=== PATIENT | female | born 2005 | race Caucasian/White ===

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

== ENCOUNTER 2023-06-03 06:46 | Emergency (ER) | payer BC, OTHER, SELFPAY ==
--- NOTE | ~2023-06-03 | XR_ITS ---
EXAMINATION: XR chest 2V DATE: 06/03/2023 07:39 INDICATION: Chest pain. Shortness of breath. TECHNIQUE: Frontal and lateral views of the chest were obtained. COMPARISON: None. FINDINGS: There is no pneumonia, pleural effusion, or pneumothorax. The heart size is normal. IMPRESSION: 1. No acute cardiopulmonary disease. Reviewed, dictated and finalized at location A.
[2023-06-03 06:47] VITALS: BP 130/81; PULSE 89; RESP 18; TEMP 36.2; O2SAT 98
--- NOTE | 2023-06-03 06:49 | ECG_ITS ---
Measurements Intervals [place] Rate: 78 P: 55 [place]: 149 QRS: 45 QRSD: 87 T: 36 QT: 384 QTc: 438 Interpretive Statements SINUS RHYTHM NORMAL ECG NO PREVIOUS ECG AVAILABLE FOR COMPARISON Electronically Signed On 06-04-2023 12:15:59 CDT by Norris Pineda M.D.
[2023-06-03 06:56] VITALS: PULSE 78
--- NOTE | 2023-06-03 07:13 | PC.NURSE ---
patient report given to VILMA Orozco for continuation of care.
--- NOTE | 2023-06-03 07:16 | ED.CHESTPAIN ---
HPI - Chest Pain General Chief Complaint: Chest Pain Stated Complaint: Chest Pain Time Seen by Provider: 06/03/23 07:00 Source: patient and RN notes reviewed Mode of arrival: ambulatory Limitations: no limitations History of Present Illness HPI narrative: patient states that she was awakened with chest pain in her central chest Fontane[place] 8/10 more of a tightness. She said this was constant for about 4 hours and then seemed to go away she tried to lay down for another 10 minutes and then the pain returned. It has been constant since then. Woke her up at 1 this morning. She says she had some sweating, nausea, mild shortness of breath. She is a nonsmoker states that her mom has problems with recurrent chest pain but no cardiac abnormalities. MD complaint: chest pain Onset (ago): hour(s) (6) Timing of current episode: constant Prior episodes: No Onset: awoke with symptoms Pain location: substernal Pain radiation: back Pain scale (0-10): 8 Quality: tightness Relieving factors: nothing Exacerbating factors: nothing Associated symptoms: nausea, diaphoresis and dyspnea Treatment prior to arrival: none Risk Factors Coronary artery disease risk factors: none Thoracic aortic dissection risk factors: none Related Data Home Medications Medication Instructions Recorded Confirmed No Home Medications 06/03/23 06/03/23 Allergies Allergy/AdvReac Type Severity Reaction Status Date / Time No Known Allergies Allergy Verified 06/03/23 07:14 [facility] Past Medical History Medical History (Updated 06/03/23 @ 08:36 by Kalyan Roth MD) No active medical problems Surgical History Surgical History (Updated 06/03/23 @ 07:19 by Kalyan Roth MD) No pertinent past surgical history Exam Const: General: healthy appearing, no acute distress and alert Nutritional Appearance: well nourished and obese Orientation/consciousness: patient oriented x3 Limitations: no limitations Other: Female tech in the room during examination. HENMT: Head: normal to inspection Ears: external ears normal Face/Nose/Sinus: Normal external nose present Face and sinus: normal facial exam Mouth: Yes moist mucous membranes Eyes: Conjunctivae: conjunctivae normal Pupils: Equal, round and reactive pupils present EOM: EOMs intact bilaterally Neck: Neck: normal visual inspection Resp: Effort & Inspection: normal respiratory effort Auscultation: clear to auscultation bilaterally Cardio: Rate: regular rate Rhythm: regular rhythm GI: GI Palp: Yes Soft to palpation and No Tenderness to palpation present (GI) Auscultation: normal bowel sounds Back/Spine/Pelvis: Cervical Spine: cervical ROM normal Thoracic/Lumbar Spine: thoraco-lumbar ROM normal Skin: General skin exam: normal color Rashes: no rashes Neuro: General: patient oriented x3, moves all extremities, no focal motor deficits and CN's II-XI intact bilaterally Speech: normal speech Gait exam (Neuro): Normal gait present Extrem: General: normal to inspection and no clubbing, cyanosis or edema Psych: Mental Status: mental status grossly normal Affect: normal affect Attitude: cooperative Course Vital Signs Vital signs: Vital Signs Temperature 36.2 C L 06/03/23 06:47 Pulse Rate 89 06/03/23 06:47 Respiratory Rate 18 06/03/23 06:47 Blood Pressure 130/81 06/03/23 06:47 Pulse Oximetry 98 06/03/23 06:47 Oxygen Delivery Room Air 06/03/23 06:47 Temperature 36.2 C L 06/03/23 06:47 Pulse Rate 78 06/03/23 06:56 Respiratory Rate 18 06/03/23 06:47 Blood Pressure 130/81 06/03/23 06:47 Pulse Oximetry 98 06/03/23 06:47 Oxygen Delivery Room Air 06/03/23 06:56 MDM - Chest Pain Differential Diagnosis Differential diagnosis: Likely pneumothorax, stable angina, unstable angina pectoris, atypical chest pain, st elevation myocardial infarction, chest pain and other ( Pneumonia, electrolyte abnormality, anemia) Lab Data Attestation: I reviewed the
[2023-06-03 07:30] VITALS: BP 120/81; PULSE 76; RESP 20; O2SAT 98
[2023-06-03] MEDS: ASPIRIN 81 MG CHEWABLE TABLET 324 MG PO (07:36)
[2023-06-03 07:50] LABS: Basophils Absolute Auto 0.05 K/mm3 (0.00-0.10); Basophils Percent Auto 0.3 % (0.0-1.0); Eosinophils Absolute Auto 0.22 K/mm3 (0.02-0.50); Eosinophils Percent Auto 1.5 % (1.0-6.0); Hematocrit 38.2 % (35.0-49.0); Hemoglobin 12.3 g/dL (12.0-15.0); Immature Granulocyte Absolute 0.08 K/mm3 (0.00-0.00); Immature Granulocyte Percent A 0.5 % (0.0-0.0); Lymphocytes Absolute Auto 2.37 K/mm3 (1.10-4.50); Lymphocytes Percent Auto 15.8 % (18.0-42.0); Mean Corpuscular HGB Conc 32.2 g/dL (32.0-36.0); Mean Corpuscular Hemoglobin 28.5 pg (27.0-31.0); Mean Corpuscular Volume 88.6 fL (78.0-102.0); Mean Platelet Volume 8.9 fl (9.2-11.8); Monocytes Absolute Auto 0.52 K/mm3 (0.10-0.90); Monocytes Percent Auto 3.5 % (2.0-11.0); Neutrophils Absolute Auto 11.8 K/mm3 (1.7-7.2); Neutrophils Percent Auto 78.4 % (50.0-70.0); Platelet Count Result 482 K/mm3 (150-420); Red Blood Count 4.31 M/mm3 (4.20-5.40); Red Cell Distribution Width 13.7 % (11.6-14.4)
[2023-06-03 08:00] VITALS: BP 111/63; PULSE 78; RESP 23; O2SAT 97
[2023-06-03 08:07] LABS: INR 0.9; Partial Thromboplastin Time 29.6 SEC (23.90-30.70); Prothrombin Time 10.3 Seconds (9.50-12.10)
[2023-06-03 08:19] LABS: Alanine Aminotransferase 14 U/L (14-59); Albumin Level 3.2 g/dL (3.4-5.0); Alkaline Phosphatase 94 U/L (46-116); Anion Gap 7 mmol/L (8-16); Aspartate Amino Transferase 11 U/L (15-37); Bilirubin,Total 0.2 mg/dL (0.00-1.00); Blood Urea Nitrogen 10 mg/dL (7-18); Carbon Dioxide 29 mmol/L (21-32); Chloride 102 mmol/L (98-108); Estimated CRCL calculation 133 ml/min; Estimated Glomerular Filt Rate > 60; Glucose 94 mg/dL (70-99); Magnesium 1.8 mg/dL (1.8-2.4); Osmolality Calculated 285 mOsm/kg (285-295); Potassium 4.3 mmol/L (3.5-5.1); Sodium 138 mmol/L (136-145); Total Protein 7.3 g/dL (6.4-8.2); Troponin I < 4.0 ng/L (0.00-60.4)
[2023-06-03 08:20] LABS: Thyroid Stimulating Hormone 2.89 uIU/mL (0.36-3.74)
[2023-06-03 08:30] VITALS: BP 122/87; PULSE 81; RESP 18; O2SAT 98
[2023-06-03 08:45] VITALS: BP 122/77; PULSE 81; RESP 21; TEMP 36.8; O2SAT 99
== END 2023-06-03 08:45 | disposition home or self-care (01) ==
PROVIDERS: Emergency Provider Emergency Medicine
DX: R07.89 Other chest pain (principal); R11.0 Nausea; R06.00 Dyspnea, unspecified
CPT/HCPCS: 36415; 71046; 80053; 83735; 84443; 84484; 85025; 85610; 85730; 93005; 99284; A9270

== ENCOUNTER 2023-06-25 12:54 | Emergency (ER) | payer BC, OTHER, SELFPAY ==
[2023-06-25] VITALS (25 sets, daily range): BP systolic 89–134; BP diastolic 49–111; PULSE 54–89; RESP 10–28; TEMP 36.2–36.6; O2SAT 94–100
--- NOTE | 2023-06-25 12:57 | ECG_ITS ---
Measurements Intervals [place] Rate: 63 P: 33 [place]: 141 QRS: 13 QRSD: 106 T: 29 QT: 406 QTc: 418 Interpretive Statements SINUS RHYTHM WITH SINUS ARRHYTHMIA DELAYED PRECORDIAL R/S TRANSITION BORDERLINE ECG COMPARED TO ECG 06/03/2023 06:57:19 SINUS ARRHYTHMIA NOW PRESENT Electronically Signed On 06-25-2023 13:48:38 CDT by Wyatt Khoury D.O.
--- NOTE | 2023-06-25 13:10 | ED.CHESTPAIN ---
HPI - Chest Pain General Chief Complaint: Chest Pain Stated Complaint: chest pain, abdominal pain. n/v/d Time Seen by Provider: 06/25/23 13:09 Related Data Home Medications Medication Instructions Recorded Confirmed No Home Medications 06/03/23 06/25/23 Allergies Allergy/AdvReac Type Severity Reaction Status Date / Time No Known Allergies Allergy Verified 06/25/23 13:01 [facility] Past Medical History Medical History (Updated 06/04/23 @ 00:06 by Melisa Chen) No active medical problems Surgical History Surgical History (Updated 06/03/23 @ 07:19 by Kalyan Roth MD) No pertinent past surgical history Discharge Plan Discharge Prescriptions: No Action No Home Medications Follow-up/Referrals: UNKNOWN,DOCTOR [Primary Care Provider] -
--- NOTE | 2023-06-25 13:17 | ED.ABDPAIN ---
HPI - Abdominal Pain General Chief Complaint: Chest Pain Stated Complaint: chest pain, abdominal pain. n/v/d Time Seen by Provider: 06/25/23 13:09 Source: patient Mode of arrival: ambulatory Limitations: no limitations History of Present Illness HPI narrative: 18-year-old female, heavy vaping presents to the ER with a 1 day history of -- epigastric pain which is continuous and nonradiating. -- Multiple episodes of nausea and vomiting no fever or chills LMP approximately 1 month ago MD elicited complaint: abdominal pain Onset (ago): day(s) ( started yesterday) Pain Consistency: constant Location: epigastric Severity: severe Quality: aching Radiation: none Migration to: no migration Exacerbating factors: nothing Relieving factors: nothing Associated symptoms: denies other symptoms, nausea, vomiting and diarrhea Related Data Date of Last Menstrual Period: 05/24/23 Patient : No Home Medications Medication Instructions Recorded Confirmed No Home Medications 06/03/23 06/25/23 Allergies Allergy/AdvReac Type Severity Reaction Status Date / Time No Known Allergies Allergy Verified 06/25/23 13:01 Review of Systems Review of Systems: All systems reviewed & are unremarkable except as noted in HPI and below Constitutional: Constitutional: Reports as per HPI and Reports no additional constitutional complaints Eyes: Eyes: Reports as per HPI and Reports no additional eye complaints ENT: Reports system reviewed and no additional complaints, except as documented and Reports as per HPI Cardiovascular: Cardiovascular: Reports as per HPI and Reports no additional cardiovascular complaints Respiratory: Respiratory: Reports as per HPI and Reports no additional respiratory complaints Gastrointestinal: Gastrointestinal: Reports as per HPI, Reports no additional gastrointestinal complaints, Reports abdominal pain, Reports diarrhea, Reports nausea and Reports vomiting Genitourinary: Genitourinary: Reports no additional female genitourinary complaints Musculoskeletal: Musculoskeletal: Reports no additional musculoskeletal complaints Integumentary/Breasts: Skin/Breast: Reports system reviewed and no additional complaints, except as docu and Reports as per HPI Neurologic: Reports system reviewed and no additional complaints, except as documented and Reports as per HPI Psychiatric: Psychiatric: Reports no additional psychiatric complaints and Reports as per HPI Endocrine: Endocrine: Reports no additional endocrine complaints and Reports as per HPI Hematologic/Lymphatic: Hematologic/Lymphatic: Reports no additional hematologic/lymphatic complaints and Reports as per HPI Allergic/Immunologic: Allergic/Immunologic: Reports no additional allergic/immunologic complaints and Reports as per HPI PMF Past Medical History Medical History No active medical problems Surgical History Surgical History No pertinent past surgical history Exam Const: General: healthy appearing and no acute distress Nutritional Appearance: well nourished Orientation/consciousness: patient oriented x3 Limitations: no limitations HENMT: Head: normal to inspection Ears: external ears normal Face/Nose/Sinus: Normal external nose present Face and sinus: normal facial exam Mouth: Yes Normal oral and palatal mucosa present Throat: posterior oropharynx normal Eyes: Conjunctivae: conjunctivae normal Pupils: Equal, round and reactive pupils present EOM: EOMs intact bilaterally Direct Ophthalmoscopy: no photophobia Neck: Neck: normal visual inspection, no lymphadenopathy and no meningeal signs Chest: Chest palpation & inspection: normal inspection of the chest Resp: Effort & Inspection: normal respiratory effort Auscultation: clear to auscultation bilaterally Cardio: Rate: regular rate Rhythm: regular rhythm GI: GI Palp:
[2023-06-25 13:32] LABS: Basophils Absolute Auto 0.03 K/mm3 (0.00-0.10); Basophils Percent Auto 0.2 % (0.0-1.0); Eosinophils Absolute Auto 0.05 K/mm3 (0.02-0.50); Eosinophils Percent Auto 0.4 % (1.0-6.0); Hematocrit 38.3 % (35.0-49.0); Hemoglobin 12.3 g/dL (12.0-15.0); Immature Granulocyte Absolute 0.07 K/mm3 (0.00-0.00); Immature Granulocyte Percent A 0.5 % (0.0-0.0); Lymphocytes Absolute Auto 1.38 K/mm3 (1.10-4.50); Mean Corpuscular HGB Conc 32.1 g/dL (32.0-36.0); Mean Corpuscular Hemoglobin 28.1 pg (27.0-31.0); Mean Corpuscular Volume 87.4 fL (78.0-102.0); Mean Platelet Volume 8.9 fl (9.2-11.8); Monocytes Absolute Auto 0.36 K/mm3 (0.10-0.90); Monocytes Percent Auto 2.6 % (2.0-11.0); Neutrophils Absolute Auto 11.9 K/mm3 (1.7-7.2); Neutrophils Percent Auto 86.3 % (50.0-70.0); Platelet Count Result 476 K/mm3 (150-420); Red Blood Count 4.38 M/mm3 (4.20-5.40); Red Cell Distribution Width 13.7 % (11.6-14.4); White Blood Count 13.8 K/mm3 (4.8-10.8)
[2023-06-25 13:53] LABS: Lactic Acid Reflex 0.8 mmol/L (0.4-2.0)
[2023-06-25 14:07] LABS: Alanine Aminotransferase 16 U/L (14-59); Albumin Level 3.1 g/dL (3.4-5.0); Alkaline Phosphatase 87 U/L (46-116); Anion Gap 7 mmol/L (8-16); Aspartate Amino Transferase 12 U/L (15-37); Bilirubin,Total 0.2 mg/dL (0.00-1.00); Blood Urea Nitrogen 9 mg/dL (7-18); Calcium 9.6 mg/dL (8.5-10.1); Carbon Dioxide 27 mmol/L (21-32); Chloride 102 mmol/L (98-108); Estimated CRCL calculation 134 ml/min; Estimated Glomerular Filt Rate > 60; Glucose 130 mg/dL (70-99); Lipase 23 U/L (16-77); Osmolality Calculated 282 mOsm/kg (285-295); Potassium 3.7 mmol/L (3.5-5.1); Sodium 136 mmol/L (136-145); Total Protein 7.6 g/dL (6.4-8.2); Troponin I < 4.0 ng/L (0.00-60.4)
[2023-06-25] MEDS: ONDANSETRON HCL ODT 4 MG TABLET PO (14:08)
[2023-06-25] MEDS: HYDROmorphone HCL INJ (*CRX) 2 MG/ML VIAL 0.5 MG IM (14:08)
[2023-06-25 15:08] LABS: Appearance Urine Clear (Clear); Bilirubin Urine Negative (Negative); Blood Urine Negative (Negative); Color Urine Light Yellow (Yellow); Glucose Urine UA Negative (Negative); Ketones Urine Negative (Negative); Leukocyte Esterase Ur Negative LEU/UL (Negative); Nitrate Urine Negative (Negative); Pregnancy On Board Control Positive; Protein Urine Negative (Negative); Urobilinogen Urine 0.2 mg/dL (0.2-1.0)
[2023-06-25 15:13] LABS: Add Urine Microscopic? NO
[2023-06-25 15:29] LABS: Urine Pregnancy Test Positive
== END 2023-06-25 16:42 | disposition home or self-care (01) ==
PROVIDERS: Emergency Provider Internal Medicine Critical Care Medicine
DX: O26.891 Other specified pregnancy related conditions, first trimester (principal); R10.13 Epigastric pain; O99.331 Smoking (tobacco) complicating pregnancy, first trimester; F17.290 Nicotine dependence, other tobacco product, uncomplicated; Z3A.01 Less than 8 weeks gestation of pregnancy
CPT/HCPCS: 36415; 80053; 81003; 81025; 83605; 83690; 84484; 85025; 93005; 96372; 99284; A9270; J1170